=== PATIENT | female | born 1955 | race Caucasian/White ===

== ENCOUNTER → 2016-11-05 | Outpatient (CLI) | payer BC ==
--- NOTE | 2016-11-05 13:33 | BD ---
EXAMINATION TYPE: MG DEXA axial skeleton. DATE OF EXAM: 11/05/2016 COMPARISON: 2013 CLINICAL HISTORY: osteoarthritis Height: 5'6 Weight: 161 FRAX RISK QUESTIONS: Alcohol (3 or more units per day): no Family History (Parent hip fracture): no Glucocorticoids (More than 3mos): no (Ex: prednisone, prednisolone, methylprednisolone, dexamethasone, and hydrocortisone). History of Fracture in Adulthood: yes Secondary Osteoporosis: 1. Type 1 Diabetes: no 2. Hyperthyroidism: no 3. Menopause before 45: no 4. Malnutrition: no 5. Chronic liver disease: no Rheumatoid Arthritis: no Current Tobacco Use: no RISK FACTORS HISTORY OF: Postmenopausal woman: MEDICATIONS: Additional Medications: acid reflux Additional History: EXAM MEASUREMENTS: Bone mineral densitometry was performed using the [email or web address] System. Bone mineral density as measured about the Lumbar spine is: ----- L1-L4(G/cm2): 1.044 T Score Values are as follows: ----- L2: -0.9 ----- L3: 0.2 ----- L4: -1.7 ----- L1-L4: -1.1 Bone mineral density has: Increased 3.9% since study of: 12/28/2013 Bone mineral density about the R hip (g/cm2): 0.755 Bone mineral density about the L hip (g/cm2): 0.775 T Score values are as follows: -----R Neck: -2.0 -----L Neck: -1.9 -----R Total: -2.2 -----L Total: -2.0 Bone mineral density has: Decreased -3.4% since study of: 12/28/2013 IMPRESSION: Osteopenia (T Score between -2.5 and -1 as noted by T score values:L1-L4, Alf Hips There is slightly increased risk of fracture and the patient may be considered for treatment. Re-Screen 2-5 years. NOTE: T-SCORE=SD OF THE YOUNG ADULT MEAN.
--- NOTE | 2016-11-07 08:51 | MM ---
Reason for exam: screening (asymptomatic). Last mammogram was performed 2 years and 10 months ago. History: Patient is postmenopausal. Physical Findings: A clinical breast exam by your physician is recommended on an annual basis and results should be correlated with mammographic findings. MG Screening Mammo w CAD Bilateral CC and MLO view(s) were taken. XCCL view(s) were taken of the right breast. Prior study comparison: December 28, 2013, bilateral MG screening mammo w CAD. No significant changes when compared with prior studies. ASSESSMENT: Benign, BI-RAD 2 RECOMMENDATION: Routine screening mammogram of both breasts in 1 year.
== END | disposition home or self-care (01) ==
LOC: RADMAMWWP 12:25
PROVIDERS: ATTEND Family Medicine
DX: Z12.31 Encounter for screening mammogram for malignant neoplasm of breast (principal); M85.80 Other specified disorders of bone density and structure, unspecified site
CPT/HCPCS: 77080; G0202

== ENCOUNTER → 2016-12-20 | Outpatient (CLI) | payer BC ==
--- NOTE | 2016-12-20 14:59 | XR ---
EXAMINATION TYPE: XR cervical spine comp DATE OF EXAM: 12/20/2016 TECHNIQUE: Frontal, lateral, oblique, and open mouth view of the cervical spine are obtained. HISTORY: Cervicalgia M54.2 COMPARISON: None FINDINGS: The cervical spine is visualized in its entirety from C1 thru the top of T1 level, it is s traightened in alignment without evidence of acute fracture or dislocation. The pre-vertebral soft t issue appears within normal limits. The C1-C2 articulation is within normal limits on the open mouth view. There is anterior fusion plate and metallic disc material C4-C5 level. Ossific fusion at this level i s seen. There is ossific fusion C5-C6 and C6-C7 level. Alignment is satisfactory. Oblique images are felt within normal limits. Overlying soft tissue is unremarkable. IMPRESSION: Persistent surgical change C4-C5 level. Suspected old surgical change below this. Arthrod esis or ossific fusion with satisfactory alignment C4-C7 level noted.
== END ==
LOC: RADXRMAIN 14:19
PROVIDERS: ATTEND Family Medicine
DX: M54.12 Radiculopathy, cervical region (principal); Z98.0 Intestinal bypass and anastomosis status
CPT/HCPCS: 72050

== ENCOUNTER → 2017-10-23 | Outpatient (CLI) | payer BC ==
--- NOTE | 2017-10-23 12:00 | XR ---
EXAMINATION TYPE: XR lumbosacral spine min 4V DATE OF EXAM: 10/23/2017 COMPARISON: NONE HISTORY: 62-year-old female with low back pain and left hip pain TECHNIQUE: 5 views FINDINGS: Degenerative levoconvex scoliosis centered along the thoracolumbar junction. Hypertrophic facet arthr opathy lower lumbar spine especially toward the left along the side of the compensatory concavity. No pars interarticularis defect seen. Alignment is maintained and vertebral body heights are preserved. Degenerative thinning of the intraspinous ligaments with abutment of the spinous processes. Variable mild to moderate degenerative disc height loss. IMPRESSION: 1. Degenerated levoconvex scoliosis with hypertrophic facet arthropathy throughout and variable mild to moderate degenerative disc disease. 2. No vertebral compression collapse or malalignment. 3. Baastrup's disease.
--- NOTE | 2017-10-23 12:09 | XR ---
EXAMINATION TYPE: XR Hip Bilateral Complete DATE OF EXAM: 10/23/2017 COMPARISON: NONE HISTORY: 62-year-old female with left hip pain TECHNIQUE: 2 views each side FINDINGS: Mild superolateral joint space narrowing at both hips with mild marginal spurring. Small anterior fem oral head neck junction osseous excrescences are noted. No acute fracture, subluxation, or dislocatio n. 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 No acute osse ous abnormality seen.
--- NOTE | 2017-10-23 12:12 | XR ---
EXAMINATION TYPE: XR knee 4V bilateral DATE OF EXAM: 10/23/2017 COMPARISON: NONE HISTORY: 62-year-old female with low back pain and left hip pain. TECHNIQUE: Weightbearing AP view of both knees along with bilateral oblique and lateral views. FINDINGS: There is mild bicompartmental joint space narrowing, similar from side to side. Mild degenerative spu rring in the bilateral patellofemoral compartments. Trace effusion on the right. Extensor mechanisms are intact. No acute fracture, subluxation, or dislocation. Elongated area of well marginated scleros is along the medial aspect of the proximal right tibial metadiaphysis likely bone island/benign endos teal sclerosis. No periostitis or osteolysis. IMPRESSION: 1. Mild bicompartmental joint space narrowing on both sides. 2. Mild degenerative spurring in the bilateral patellofemoral compartments. 3. Trace knee joint effusion on the right.
== END ==
LOC: RADXRMAIN 10:28
PROVIDERS: ATTEND Family Medicine
DX: M51.36 Other intervertebral disc degeneration, lumbar region (principal); M46.96 Unspecified inflammatory spondylopathy, lumbar region; M41.9 Scoliosis, unspecified; M48.27 Kissing spine, lumbosacral region; M16.12 Unilateral primary osteoarthritis, left hip; M16.11 Unilateral primary osteoarthritis, right hip; M25.862 Other specified joint disorders, left knee; M25.861 Other specified joint disorders, right knee; M76.52 Patellar tendinitis, left knee; M76.51 Patellar tendinitis, right knee
CPT/HCPCS: 72110; 73521

== ENCOUNTER → 2018-11-11 | Outpatient (CLI) | payer MEDICARE, OTHER | END | disposition home or self-care (01) | LOC: LABWHC1 14:15 | PROVIDERS: ATTEND Surgery Plastic and Reconstructive Surgery | DX: Z01.812 Encounter for preprocedural laboratory examination (principal) | CPT/HCPCS: 36415; 93005 ==

== ENCOUNTER → 2023-07-05 | Outpatient (CLI) | payer MEDICARE ==
--- NOTE | 2023-07-05 09:55 | MM ---
Reason for Exam: Screening (asymptomatic). Last mammogram was performed 6 year(s) and 8 month(s) ago. Patient History: Menarche at age 12. First Full-Term at age 18. Hysterectomy at age 44. Postmenopausal. Sister had breast cancer, age 67. Risk Values: Hazel 5 year model risk: 3.2%. NCI Lifetime model risk: 10.1%. Prior Study Comparison: 12/28/2013 Bilateral Screening Mammogram, [facility]. 11/05/2016 Bilateral Screening Mammogram, [facility]. Tissue Density: There are scattered areas of fibroglandular density. Findings: Analyzed By CAD. The pattern is symmetrical. Bilateral breast prostheses are present No suspicious groups of microcalcifications, spiculated or lobular masses, architectural distortion or other secondary signs of malignancy are mammographically apparent. Overall Assessment: Negative, BI-RAD 1 Management: Screening Mammogram of both breasts in 1 year. A negative mammogram report should not preclude additional follow up of suspicious palpable abnormalities. Patient should continue monthly self breast exam. A clinical breast exam by your physician is recommended on an annual basis and results should be correlated with mammographic findings. Note on Hazel scores and lifetime risk: 1. A Hazel score greater than 3% is considered moderate risk. If this is the case, consider specialist referral to assess eligibility for a risk reducing agent. 2. If overall lifetime risk for the development of breast cancer is 20% or higher, the patient may qualify for future screening with alternating mammogram and breast MRI. Electronically signed and approved by: Frankie Win D.O. Radiologis
--- NOTE | 2023-07-09 19:13 | BD ---
EXAMINATION TYPE: EXAMINATION TYPE: MG DEXA axial skeleton. DATE OF EXAM: 07/05/2023 COMPARISON: 2013 CLINICAL HISTORY: osteoarthritis Height: 5'6 Weight: 161 FRAX RISK QUESTIONS: Alcohol (3 or more units per day): no Family History (Parent hip fracture): no Glucocorticoids (More than 3mos): no (Ex: prednisone, prednisolone, methylprednisolone, dexamethasone, and hydrocortisone). History of Fracture in Adulthood: yes Secondary Osteoporosis: 1. Type 1 Diabetes: no 2. Hyperthyroidism: no 3. Menopause before 45: no 4. Malnutrition: no 5. Chronic liver disease: no Rheumatoid Arthritis: no Current Tobacco Use: no RISK FACTORS HISTORY OF: Postmenopausal woman: MEDICATIONS: Additional Medications: acid reflux Additional History: EXAM MEASUREMENTS: Bone mineral densitometry was performed using the [employer] System. Bone mineral density as measured about the Lumbar spine is: ----- L1-L4(G/cm2): 1.044 T Score Values are as follows: ----- L2: -0.9 ----- L3: 0.2 ----- L4: -1.7 ----- L1-L4: -1.1 Bone mineral density has: Increased 3.9% since study of: 12/28/2013 Bone mineral density about the R hip (g/cm2): 0.755 Bone mineral density about the L hip (g/cm2): 0.775 T Score values are as follows: -----R Neck: -2.0 -----L Neck: -1.9 -----R Total: -2.2 -----L Total: -2.0 Bone mineral density has: Decreased -3.4% since study of: 12/28/2013 IMPRESSION: Osteopenia (T Score between -2.5 and -1 as noted by T score values:L1-L4, Alf Hips There is slightly increased risk of fracture and the patient may be considered for treatment. Re-Screen 2-5 years. NOTE: T-SCORE=SD OF THE YOUNG ADULT MEAN. Bone Density DATE OF EXAM: 07/05/2023 CLINICAL HISTORY: 68 years old Female. ICD-10 CODE: N95.1 Post menopausal Height: 65.5" Weight: 138lbs FRAX RISK QUESTIONS: Alcohol (3 or more units per day): No Family History (Parent hip fracture): No Glucocorticoids (More than 3mos): No (Ex: prednisone, prednisolone, methylprednisolone, dexamethasone, and hydrocortisone). History of Fracture in Adulthood: Yes Secondary Osteoporosis: 1. Type 1 Diabetes: No 2. Hyperthyroidism: No 3. Menopause before 45: No 4. Malnutrition: No 5. Chronic liver disease: No Rheumatoid Arthritis: No Current Tobacco Use: No RISK FACTORS HISTORY OF: Hip Fracture (Right/Left): No Spine Fracture: No History of Wrist Fracture: No Surgery to Spine/Hip(right/left)/Wrist (right/left): No MEDICATIONS: Thyroid Medications: No .Osteoporosis Medications: No EXAM MEASUREMENTS: Bone mineral densitometry was performed using the [employer] System. Bone mineral density as measured about the Lumbar spine is: ----- L1-L4(G/cm2): 0.940 T Score Values are as follows: ----- L1: -3.0 ----- L2: -1.9 ----- L3: -1.3 ----- L4: -1.9 ----- L1-L4: -2.0 Z Score Values are as follows: ----- L1: -1.7 ----- L2: -0.5 ----- L3: 0.1 ----- L4: -0.6 ----- L1-L4: -0.6 Bone mineral density has: decreased -10.0% since study of: 11/05/2016 Bone mineral density about the R hip (g/cm2): 0.636 Bone mineral density about the L hip (g/cm2): 0.613 T Score values are as follows: -----R Neck: -2.6 -----L Neck: -2.2 -----R Total: -3.0 -----L Total: -3.1 Z Score values are as follows: -----R Neck: -1.1 -----L Neck: -0.7 -----R Total: -1.8 -----L Total: -1.9 Bone mineral density has: decreased -14.6% since study of: 11/05/2016 FRAX%s: The graph provided illustrates a 15.0% chance for a major osteoporotic fx and a 3.7% chance f or the hips probability for fx in 10 years time. IMPRESSION: Osteoporosis (T Score less than -2.5). There is increased fracture risk and therapy is usually indicated based on age. Re-Screen 1-2 years. NOTE: T-SCORE=SD OF THE YOUNG ADULT MEAN.
== END | disposition home or self-care (01) ==
LOC: RADBDWWP 08:38
PROVIDERS: ATTEND Family Medicine
DX: Z12.31 Encounter for screening mammogram for malignant neoplasm of breast (principal); N95.1 Menopausal and female climacteric states; M85.89 Other specified disorders of bone density and structure, multiple sites; M81.0 Age-related osteoporosis without current pathological fracture; Z80.3 Family history of malignant neoplasm of breast
CPT/HCPCS: 77063; 77067; 77080

== ENCOUNTER → 2024-08-06 | Outpatient (CLI) | payer MEDICARE ==
--- NOTE | 2024-08-06 14:51 | MM ---
Reason for Exam: Screening (asymptomatic). Last mammogram was performed 1 year(s) and 1 month(s) ago. Patient History: Menarche at age 12. First Full-Term at age 18. Hysterectomy at age 44. Postmenopausal. Sister had breast cancer, age 67. Risk Values: Hazel 5 year model risk: 3.2%. NCI Lifetime model risk: 9.7%. Prior Study Comparison: 12/28/2013 Bilateral Screening Mammogram, [facility]. 11/05/2016 Bilateral Screening Mammogram, [facility]. 07/05/2023 Bilateral MG 3D screen mammo imp/cad., [facility]. Tissue Density: The breasts are heterogeneously dense, which may obscure small masses. Findings: Analyzed By CAD. Bilateral breast implants appear intact. Right breast: There is no suspicious group of microcalcifications or new suspicious mass. Left breast: There is no suspicious group of microcalcifications or new suspicious mass. Overall Assessment: Negative, BI-RAD 1 Management: Screening Mammogram of both breasts in [address] [facility] will attempt to contact patient to return for supplemental views and ultrasound if indicated. Patient should continue monthly self-breast exams. A clinical breast exam by your physician is recommended on an annual basis. This exam should not preclude additional follow-up of suspicious palpable abnormalities. Note on Hazel scores and lifetime risk: 1. A Hazel score greater than 3% is considered moderate risk. If this is the case, consider specialist referral to assess eligibility for a risk reducing agent. 2. If overall lifetime risk for the development of breast cancer is 20% or higher, the patient may qualify for future screening with alternating mammogram and breast MRI. [facility], , 08/06/2024 2:48 PM. Electronically signed and approved by: Jeramy Lion DO
== END | disposition home or self-care (01) ==
LOC: RADMAMWWP 13:11
PROVIDERS: ATTEND Family Medicine
DX: Z12.31 Encounter for screening mammogram for malignant neoplasm of breast (principal); R92.333 Mammographic heterogeneous density, bilateral breasts; Z78.0 Asymptomatic menopausal state; Z80.3 Family history of malignant neoplasm of breast
CPT/HCPCS: 77063; 77067